=== PATIENT | female | born 2005 | race Caucasian/White ===

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

== ENCOUNTER 2025-02-01 10:49 | Outpatient (REF) | payer MEDICAID, SELFPAY ==
--- OUTSIDE RECORDS SUMMARY | 2025-02-01 11:40 | XMS_ITS | Encounter Summary ---
Author Organization [employer] Address [address] [place] [address] Care Team Providers Care Dye Weigher Name Role Phone Nhung Vanegas MD Primary Care Provider [phone] Mary Powers NP Primary Care Provider [phone] Encounter Details Date Type Department Care Team (Late st Contact Info) Description 04/11/2024 Orders Only [facility] [address] [place] [address] Nhung Vanegas MD [address] [place] [address] Social History Tobacco Use Types Packs/Day Years Used Date Smoking Tobacco: Never Smokeless Tobacco: Never Depression Answer Date Recorded Patient Health Questionnaire-9 Score 2 02/23/2023 Housing Stability Answer Date Recorded What is your housing situation today? I have larry ford 07/06/[address] you li ve. Do you have problems with any of the following? None of the above 07/06/2023 Food Insecurity Answer Date Recorded Within the past 12 months, y ou worried that your food would run out before you got money to buy more: Never True 07/06/2023 Within the past 12 months,th e food you bought just didn't last and you didn't have enough money to get more: Never True 01/2023 Transportation Answer Date Recorded In the past 12 months, has l ack of transportation kept you from medical appts, meetings, work or from getting things needed for daily living? No 07/06/2023 Utilities Answer Date Recorded In the past 12 months, has t he electric, gas, oil or water company threatened to shut off services in your home? No 07/06/2023 Depression Answer Date Recorded Patient Health Questionnaire-2 Score 1 02/23/2023 Comments Unknown Sex and Gender Information Value Date Recorded Sex Assigned at Female 06/30/2022 10:19 AM EDT Legal Sex Female 10:19 AM EDT Gender Identity Female 06/30/2022 10:19 AM EDT Sexual Orientation Straight 06/30/2022 10 :19 AM EDT documented as of this encounter Plan of Treatment Not on file documented as of this encounter Visit Diagnoses Not on filedocumented in this encounter Additional Health Concerns Assessment Noted Time PHQ-9 Depression Total Score: 2 02/24/20 23 4:52 PM EDT documented as of this encounter Care Teams Dye Weigher Relationship Specialty Start Date End Date Nhung Vanegas MD [address] [place] [address] PCP - General Pediatrics 07/10/14 11/02/24 Mary Powers NP [address] [place] [address] PCP - General Family Medicine 11/03/24 documented as of this encounter
[2025-02-01 13:20] LABS: MANUAL DIFF FLAG NO
[2025-02-01 13:28] LABS: Basophils Percent Auto 0.5 % (0-2); Eosinophils Percent Auto 0.6 % (0-4); Hematocrit 37.3 % (37.0-47.0); Hemoglobin 11.6 g/dl (12.0-16.0); Imm Gran Abs Auto 0.02 X10*3/uL (0.00-0.03); Imm Gran Pct Auto 0.3 % (0.0-0.4); Immature Retic Fraction 9.7 % (3.0-15.9); Lymphocytes Absolute Auto 1.8 X10*3/uL (1.2-4.9); Mean Corpuscular HGB Conc 31.1 g/dl (31.0-35.0); Mean Corpuscular Hemoglobin 23.6 pg (27.0-33.0); Mean Platelet Volume 10.9 fL (9.4-12.3); Monocytes Absolute Auto 0.3 X10*3/uL (0.1-1.2); Monocytes Percent Auto 4.9 % (2-11); Neutrophils Absolute Auto 4.4 x10*3/uL (2.0-8.3); Neutrophils Percent Auto 66.7 % (45-73); Platelet Count 300 X10*3/uL (160-400); Red Blood Count 4.91 X10*6/uL (4.20-5.50); Retic HGB Equivalent 30.5 pg (30.0-35.0); Reticulocyte Percent 0.9 % (0.5-1.8); Reticulocytes Absolute 0.046 X10*6/uL (0.026-0.095); White Blood Count 6.5 X10*3/uL (4.8-10.8)
[2025-02-01 13:46] LABS: Iron 58 mcg/dL (30-160); Percent Iron Saturation 16 % (15-50); Total Iron Binding Capacity 356 mcg/dL (228-428); Unsaturated Iron Binding 298 ug/dL
[2025-02-01 13:58] LABS: Free T4 (Free Thyroxine) 1.11 ng/dL (0.71-1.85); Thyroid Stimulating Hormone 0.75 uIU/mL (0.32-4.0)
[2025-02-01 13:59] LABS: TSH reflex Free T4 0.76 uIU/mL (0.32-4.0)
[2025-02-01 14:09] LABS: Folate 9.3 ng/mL (> or = 4.0); Vitamin B12 502 pg/mL (200-900)
[2025-02-02 06:33] LABS: DHEA Sulfate 333 mcg/dL (44-286); Follicle Stimulating Hormone 2.3 mIU/mL
[2025-02-07 13:59] LABS: Estrogen 247 pg/mL
[2025-02-19 16:18] LABS: Testosterone, Free 4.1 pg/mL (0.1-6.4); Testosterone, Total 25 ng/dL (2-45)
== END 2025-02-01 10:50 | disposition home or self-care (01) ==
LOC: HO.HHCL 10:49
PROVIDERS: Pediatrics; Visit Provider Nurse Practitioner
DX: N83.209 Unspecified ovarian cyst, unspecified side (principal); N94.6 Dysmenorrhea, unspecified; Z86.2 Personal history of diseases of the blood and blood-forming organs and certain disorders involving the immune mechanism
CPT/HCPCS: 36415; 82607; 82627; 82672; 82746; 83001; 83002; 83540; 84402; 84403; 84439; 84443; 85025; 85045

== ENCOUNTER 2025-06-01 22:23 | Emergency (ER) | payer MEDICAID, SELFPAY ==
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
--- NOTE | ~2025-06-01 | CT_ITS ---
CLINICAL HISTORY: Left Abd and Flank Pain; Pos LCVAT CT abdomen and pelvis with contrast Comparison: CT - CT ABDOMEN PELVIS WITH IV CONTRAST - 02/06/2024 12:17 AM EDT Findings: No consolidation or effusion. The gallbladder and solid organs are within normal limits. No renal stones. No bowel obstruction, pneumoperitoneum, or pneumatosis. There is ascites adjacent to the right adnexa. Pelvic contents are otherwise unremarkable. Normal appendix. The bones are intact. IMPRESSION: Localized pelvic ascites possibly related to recent cyst rupture. Clinical follow-up recommended. This document has been electronically signed by: Deep Mcknight MD on 06/02/2025 05:17:41
--- NOTE | ~2025-06-01 | US_ITS ---
EXAMINATION: US PELVIS CLINICAL INFORMATION: Abdominal pain. Pelvic free fluid on CT. COMPARISON: March 29, 2024. Correlated to CT abdomen and pelvis dated June 02, 2025. TECHNIQUE: Ultrasound of the pelvis is performed using only transabdominal transducer with grayscale and color Doppler. Transvaginal imaging is not performed, per patient's desire.. FINDINGS: Uterus: The uterus is anteverted and retroflexed measures 7 x 3 x 5 cm. Volume: 50 cc. The double wall endometrial thickness is 9 mm. The uterus is smooth in contour and has normal myometrial echogenicity. No visible fibroid. Adnexa: The ovaries are identified with flow on color Doppler interrogation.. No gross solid or cystic lesion in either ovary. Trace amount of free fluid in the cul-de-sac. Right ovary measures 2 x 3 x 2 cm. Volume: 9 cc. Left ovary measures 2 x 3 x 2 cm. Volume: 5 cc. US/US pelvic complete IMPRESSION: No ovarian torsion. No gross solid or cystic lesion. Trace amount of free fluid in the cul-de-sac. Electronically signed by: Micheal Lisa MD 06/02/2025 08:47 AM EDT
[2025-06-01 22:25] VITALS: BP 124/57; PULSE 88; RESP 20; TEMP 36.9; O2SAT 100; BMI 23.5
[2025-06-01 23:24] LABS: MANUAL DIFF FLAG NO
[2025-06-01 23:27] LABS: Appearance Urine Clear; Glucose Urine UA Negative (Negative); PH 6.0 (5.0-9.0); Specific Gravity - Urine <= 1.005 (1.005-1.025)
[2025-06-01 23:27] LABS: Hematocrit 35.6 % (37.0-47.0); Hemoglobin 11.1 g/dl (12.0-16.0); Imm Gran Abs Auto 0.02 X10*3/uL (0.00-0.03); Imm Gran Pct Auto 0.2 % (0.0-0.4); Lymphocytes Absolute Auto 3.0 X10*3/uL (1.2-4.9); Mean Corpuscular HGB Conc 31.2 g/dl (31.0-35.0); Mean Corpuscular Hemoglobin 25.6 pg (27.0-33.0); Mean Corpuscular Volume 82.0 fL (80.0-98.0); NRBC Abs Auto 0.000 X10*3/uL (0.0-0.012); NRBC Pct Auto 0.0 /100WBC (0.0-0.2); Platelet Count 286 X10*3/uL (160-400); Red Blood Count 4.34 X10*6/uL (4.20-5.50); White Blood Count 10.0 X10*3/uL (4.8-10.8)
[2025-06-01 23:39] LABS: Alanine Aminotransferase 15 U/L (0-31); Albumin Level 4.7 g/dL (3.5-5.0); Alkaline Phosphatase 52 U/L (39-117); Anion Gap 12 (12-20); Aspartate Amino Transferase 22 U/L (5-31); Blood Urea Nitrogen 9 mg/dL (9-16); Calcium 9.9 mg/dL (8.4-10.2); Carbon Dioxide 26 mmol/L (22-29); Chloride 108 mmol/L (96-108); Creatinine Clr Calc Pharmacy 141.9; Estimated Glomerular Filt Rate > 60; Potassium 5.2 mmol/L (3.3-5.1); Sodium 141 mmol/L (135-145); Total Protein 8.2 g/dL (6.5-8.0)
--- NOTE | 2025-06-02 01:38 | ED_ITS ---
HPI - Female Genitourinary General Chief complaint: Urogenital-Female Stated complaint: abd and back pain Time Seen by Provider: 06/02/25 01:37 Source: patient Mode of arrival: ambulatory Limitations: no limitations History of Present Illness ED Provider: Carl MENARD HPI Narrative: The patient is a 19-year-old female presenting to the ED reporting for the past 3 days she has been experiencing left-sided abdominal pain which radiates into her left flank with the associated burning with urination and some spotting on her toilet paper after urinating. The patient reports last menstrual period was the beginning of May, reports she is sexually active but uses barrier control. The patient reports some associated nausea and subjective chills but denies associated objective fever, vomiting, diarrhea, vaginal discharge, chest pain, shortness of breath, pleurisy, recent sick contacts, or recent trauma. Related Data Previous Rx's ?Medication ?Instructions ?Recorded cephalexin 500 mg capsule 500 mg PO BID #14 caps 09/18 doxycycline monohydrate 100 mg 100 mg PO BID #14 tabs 09/18/24 tablet acetaminophen 500 mg capsule 1,000 mg (2 x 500 mg) PO Q8H PRN 06/02/25 fever or pain #14 caps ibuprofen 400 mg tablet 400 mg PO Q6H PRN pain #14 t abs 06/02/25 Allergies Allergy/AdvReac Type Severity Reaction Status Date / Time No Known Allergies Allergy Verified 06/01/25 22:27 Review of Systems 2 Review of Systems: Yes all other systems are reviewed and are negative PMFSH Past Medical History Medical History No known health problems Social History Social History Alcohol intake: never Smoked in Last 30 Days: No Use of substances other than those prescribed or required for medical reasons: No Advance Directives: No Physical Exam 2 Vital Signs: Vital Signs: Last Vital Signs Temp 98.4 F 06/02/25 03:11 Pulse 70 06/02/25 06:16 Resp 18 06/02/25 06:16 BP 106/68 06/02/25 07:09 Pulse Ox 100 06/02/25 06:16 O2 Del Method Room Air 06/02/25 06:16 BMI result Body Mass Index 23.5 CONSTITUTIONAL: The patient appears non-toxic, well nourished and in no acute distress. Vital signs as documented. HEAD: Atraumatic, normocephalic. EYES: EOMs grossly intact, pupils equal, conjunctiva clear, no exudate. ENT: Nares patent, no discharge. Airway patent, no audible stridor, visible mucosa is pink and moist without noted lesions. NECK: Trachea is midline, no obvious masses or gross abnormalities. CHEST: Symmetric movement, normal appearance. LUNGS: LS present and CTAB, no w/r/r. Non-labored work of breathing. CARDIAC: Regular Rhythm, S1/S2 appreciated, no murmurs, rubs or gallops. ABDOMEN: Abdomen soft x4 quadrants, positive tenderness to palpation of the left upper quadrant, negative rebound, no palpable masses or organomegaly. Positive CVAT on the left, negative on the right. : Deferred. EXTREMITIES: Normal tone, moves all extremities spontaneously without reported pain. No obvious acute injury or deformity noted. NEURO: Alert and oriented x3, CN II-XII appear grossly intact. Cerebellar Functioning grossly intact. No obvious sensory or motor deficits. Speech clear and appropriate. PSYCH: normal affect, appropriate eye contact, fluid speech, with appropriate response to questioning. No reported suicidality or homicidality. SKIN: Warm, dry, color appropriate, normal turgor. No rashes noted. Course Reevaluation(s) Reevaluation #1: Fredrickius: The patient was signed out to me pending the results of an ultrasound of the pelvis. The patient is a 19-year-old female who had originally presented to the emergency room complaining of left lower quadrant abdominal pain and left flank pain. There was also a question of possible burning with urination. The patient also reported seeing blood on her toilet paper. Her urinalysis here shows no signs of blood or infection. A CT scan with IV contrast has been done that showed no acute findings except for a small amount of free fluid near the right adnexal area. I reviewed the images and saw no hydronephrosis. On the basis of the CT finding a pelvic ultrasound was ordered to look for a ruptured ovarian cyst. The pelvic ultrasound showed no significant findings and described only a trace amount of free fluid in the cul de sac. The patient was given IV ketorolac and acetaminophen for discomfort. She was feeling much better. Her labs are unremarkable. I think she may be discharged. She says that she has a new patient appointment for primary care with the [facility] in July. She is encouraged to keep this appointment or return to the ER if worse before then. Time: 09:06 Medications Administered Discontinued Medications Generic Name Dose Route Start Last Admin Trade Name Keshawn PRN Reason Stop Dose Admin Sodium Chloride 1,000 mls @ 999 mls/hr 06/02/25 02:00 06/02/25 02:59 Ns IV 06/02/25 03:00 Infused .Q1H1M AUGIE Infusion Acetaminophen 1,000 mg in 100 mls @ 400 mls/hr 06/02/25 07:15 06/02/25 08:00 Ofirmev IV 06/02/25 07:29 Infused ONCE ONE Infusion Iohexol 85 ml 06/02/25 04:10 06/02/25 04:12 Iohexol 350 Mg/Ml 100 Ml Infus..Btl IV 06/02/25 04:11 85 ml ONCE ONE Administration Ketorolac Tromethamine 15 mg 06/02/25 07:15 06/02/25 07:27 Ketorolac Tromethamine 15 Mg/Ml Vial IVPUSH 06/02/25 07:16 15 mg ONCE ONE Administration Medical Decision Making Medical Decision Making MDM Narrative: 2:03 AM 06/02/2025 (Stephenie MENARD): The patient is a 19-year-old female presenting to the ED reporting for the past 3 days she has been experiencing left-sided abdominal pain which radiates into her left flank with the associated burning with urination and some spotting on her toilet paper after urinating. The patient reports last menstrual period was the beginning of May, reports she is sexually active but uses barrier control. The patient reports some associated nausea and subjective chills but denies associated objective fever, vomiting, diarrhea, vaginal discharge, chest pain, shortness of breath, pleurisy, recent sick contacts, or recent trauma. On exam the patient is tender more in the left upper quadrant than left lower quadrant, with positive CVAT on the left. Negative rebound. The patient's laboratory evaluation shows no leukocytosis, significant anemia, significant electrolyte abnormality, or СВЕТЛАНА. The patient's LFTs are unremarkable. The patient's urinalysis shows no evidence of infection, no blood. We will add on a test, provide IV fluid hydration, and obtain CT abdomen and pelvis to evaluate for ureterolithiasis or other acute pathology. If patient's test is positive we will forego CT and obtain pelvic ultrasound. If there is no explanation of the patient's symptoms on imaging, we will perform pelvic exam to further evaluate symptoms. 5:28 AM 06/02/2025 (Stephenie MENARD): The patient's CT shows a significant amount of free fluid in the right lincoln-pelvis, although this is inconsistent with the left sided pain patient is describing, we will obtain pelvic ultrasound to further characterize free pelvic fluid and ensure no torsion. Admission/Observation Consideration of admission/observation: Escalation of care including admission/observation considered Lab Data MDM Lab Attestation statement: I reviewed the patient's lab results. 06/01/25 23:08 06/01/25 23:08 Labs: Lab Results 06/01/25 06/01/25 06/02/25 Range/Units 23:06 23:08 07:33 WBC 10.0 (4.8-10.8) X10*3/uL RBC 4.34 (4.20-5.50) X10*6/uL Hgb 11.1 L (12.0-16.0) g/dl Hct 35.6 L (37.0-47.0) % MCV 82.0 (80.0-98.0) fL MCH 25.6 L (27.0-33.0) pg MCHC 31.2 (31.0-35.0) g/dl RDW 14.0 (11.0-16.0) % Plt Count 286 (160-400) X10*3/uL MPV 10.4 (9.4-12.3) fL Immature Gran % (Auto) 0.2 (0.0-0.4) % Neut % (Auto) 64.4 (45-73) % Lymph % (Auto) 30.0 (20-40) % [place] % (Auto) 3.9 (2-11) % Eos % (Auto) 1.1 (0-4) % Baso % (Auto) 0.4 (0-2) % Lymph # (Auto) 3.0 (1.2-4.9) X10*3/uL [place] # (Auto) 0.4 (0.1-1.2) X10*3/uL Eos # (Auto) 0.1 (0.0-0.4) X10*3/uL Baso # (Auto) 0.0 (0.0-0.2) X10*3/uL Abs Immat Gran (auto) 0.02 (0.00-0.03) X10*3/uL Absolute Neuts (auto) 6.5 (2.0-8.3) x10*3/uL Absolute Nucleated RBC 0.000 (0.0-0.012) X10*3/uL Nucleated RBC % (auto) 0.0 (0.0-0.2) /100WBC Sodium 141 (135-145) mmol/L Potassium 5.2 H (3.3-5.1) mmol/L Chloride 108 (96-108) mmol/L Carbon Dioxide 26 (22-29) mmol/L Anion Gap 12 (12-20) BUN 9 (9-16) mg/dL Creatinine 0.62 (0.5-1.4) mg/dL Estim Creat Clear Calc 141.9 Estimated GFR > 60 Random Glucose 92 (60-115) mg/dL Calcium 9.9 (8.4-10.2) mg/dL Total Bilirubin 0.2 (0.0-1.0) mg/dL AST 22 (5-31) U/L ALT 15 (0-31) U/L Alkaline Phosphatase 52 (39-117) U/L Total Protein 8.2 H (6.5-8.0) g/dL Albumin 4.7 (3.5-5.0) g/dL Urine Color Yellow Urine Appearance Clear Urine pH 6.0 (5.0-9.0) Ur Specific [place] <= 1.005 (1.005-1.025) Urine Protein Negative (Neg-Trace) mg/dL Urine Glucose (UA) Negative (Negative) mg/dL Urine Ketones Negative (Negative) mg/dL Urine Blood Negative (Negative) Urine Nitrite Negative (Negative) Ur Leukocyte Esterase Negative (Negative) Urine Test NEGATIVE NEGATIVE (NEGATIVE) Radiology Impression Discussion of test interpretation with radiology: I have reviewed the radiologist's reading. Radiologist Impression: CT abdomen and pelvis with contrast Comparison: CT - CT ABDOMEN PELVIS WITH IV CONTRAST - 02/06/2024 12:17 AM EDT Findings: No consolidation or effusion. The gallbladder and solid organs are within normal limits. No renal stones. No bowel obstruction, pneumoperitoneum, or pneumatosis. There is ascites adjacent to the right adnexa. Pelvic contents are otherwise unremarkable. Normal appendix. The bones are intact. IMPRESSION: Localized pelvic ascites possibly related to recent cyst rupture. Clinical follow-up recommended. This document has been electronically signed by: Deep Mcknight MD on 06/02/2025 05:17:41 Discharge Plan Discharge Clinical Impression: Left sided abdominal pain Patient Disposition: Home, Self-Care Additional Instructions: Your testing in the emergency room today does not show any dangerous process. It is possible that you might have had a small ovarian cyst rupture. However this is not certain. Fortunately there are no other findings of any concern. I have sent a prescription for acetaminophen and ibuprofen to your pharmacy. You may use these as needed for pain. Please plan on keeping your appointment with your primary care doctor next month. Return to the emergency room if worse before then. Prescriptions: New ibuprofen 400 mg tablet 400 mg PO Q6H PRN (Reason: pain) Qty: 14 0RF acetaminophen 500 mg capsule 1,000 mg PO Q8H PRN (Reason: fever or pain) Qty: 14 0RF No Action doxycycline monohydrate 100 mg tablet 100 mg PO BID Qty: 14 0RF cephalexin 500 mg capsule 500 mg PO BID Qty: 14 0RF Referrals: [facility] [Provider Group] Stand Alone Forms: Work/School Release Print Language: Slovenian
--- OUTSIDE RECORDS SUMMARY | 2025-06-02 01:43 | XMS_ITS | Encounter Summary ---
Author Organization [facility] Address [address] [place] [address] Care Team Providers Care It Operations Analyst Name Role Phone Nhung Vanegas MD Primary Care Provider [phone] Mary Powers NP Primary Care Provider [phone] Encounter Details Date Type Department Care Team (Late st Contact Info) Description 04/11/2024 Orders Only [facility] [address] [place] [address] Nhung Vanegas MD [address] [place] [address] Social History Tobacco Use Types Packs/Day Years [...] as of this encounter Plan of Treatment Upcoming Encounters Date Type Department Care Team (Late st Contact Info) Description 07/17/2025 11:00 AM EST Office Visit [facility] [address] [place] [address] Mary Powers NP [address] [place] [address] documented as of this encounter Visit Diagnoses Not on filedocumented in this encounter Additional Health Concerns Assessment Noted Time PHQ-9 Depression Total Score: 2 02/24/20 23 4:52 PM EDT documented as of this encounter Care Teams It Operations Analyst Relationship Specialty Start Date End Date Nhung Vanegas MD [address] [place] [id number] PCP - General Pediatrics 07/10/14 11/02/24 Mary Powers NP [address] [place] [id number] PCP - General Family Medicine 11/03/24 documented as of this encounter
--- OUTSIDE RECORDS SUMMARY | 2025-06-02 01:43 | XMS_ITS | Encounter Summary ---
Author Organization [facility] Address [address] [place] [address] Care Team Providers Care Aged Or Disabled Carer Name Role Phone Nhung Vanegas MD Primary Care Provider [phone] Mary Powers NP Primary Care Provider [phone] Encounter Details Date Type Department Care Team ([facility] st Contact Info) Description 03/01/2024 Orders Only [facility] [address] [place] [address] Nhung Vanegas MD [address] [place] [address] Ovarian cyst rupture (Primary Dx) Social History Tobacco Use Types Packs/Day Years [...] Description 07/17/2025 11:00 AM EST Office Visit [facility] [address] [place], [place] [phone] Mary Powers NP [address] [place], [place] [phone] documented as of this encounter Procedures Procedure Name Priority Date/Time Associated Diagnosis Comments US PELVIS COMPLETE Routine 03/29/2024 4: 51 PM EDT documented in this encounter Results * Us Pelvis complete (03/29/2024 4:51 PM EDT) Anatomical Region Laterality Modality Pelvis Ultrasound 03/29/2024 4:51 PM EDT Narrative 04/11/2024 2:48 PM EDT [address] [address] Ultrasound Report Signed Patient: Monica Vazquez MR#: [id number] : 2005 Acct:[id number] Age/Sex: 18 / F ADM Date: 03/29/24 Loc: HO.US Attending Dr: Nhung Vanegas MD Ordering Physician: Nhung Vaneags MD Date of Service: 03/29/24 Procedure(s): US pelvic complete Accession Number(s): [id number] cc: Nhung Vanegas MD EXAMINATION: US PELVIS CLINICAL INFORMATION: Ovarian cyst rupture, last menstrual period 03/18/2024, patient declined transvaginal ultrasound. COMPARISON: CT abdomen and pelvis of February 05, 2024. TECHNIQUE: Transabdominal ultrasound images of the pelvis were obtained. Patient declined transvaginal ultrasound imaging. FINDINGS: Uterus is anteverted and measures 7.3 x 3.3 x 4.0 cm. Limited visualization of endometrium due to bowel gas, but imaged segment of endometrium demonstrates thickness of approximately 0.4-0.6 cm. No significant free fluid. Right ovary measures 3.2 x 2.1 x 2.3 cm, volume 8.1 mL. Left ovary measures 2.8 x 2.4 x 1.6 cm, volume 5.6 mL. Right ovarian 1.2 cm cyst is likely physiologic. There is no specific indication for additional imaging at this time. Left ovary grossly unremarkable. Visualization of bilateral ovaries is limited due to bowel gas. Transvaginal ultrasound could be considered for better visualization. US/US pelvic complete IMPRESSION: 1. Right ovarian 1.2 cm cyst is likely physiologic. There is no specific indication for additional imaging at this time. 2. Left ovary grossly unremarkable. Visualization of bilateral ovaries is limited due to bowel gas. Transvaginal ultrasound could be considered for better visualization. 3. Limited visualization of endometrium due to bowel gas, but imaged segment of endometrium demonstrates thickness of approximately 0.4-0.6 cm. Dictated By: Angelina Sahu MD Signed By: <Electronically signed by Angelina Sahu MD in OV> 04/11/24 1443 DD/ 1651 TD/TT: Metal Mover: Procedure Note Donotuseinterpreter, Image - 04/11/[address] [address] Ultrasound Report Signed Patient: Monica VazquezMR#: [id number] : 2005cct:[id number] Age/Sex: 18 / FADM Date: 03/29/24 Loc: HO.US Attending Dr: Nhung Vanegas MD Ordering Physician: Nhung Vanegas MD Date of Service: 03/29/24 Procedure(s): US pelvic complete Accession Number(s): [id number] cc: Nhung Vanegas MD EXAMINATION: US PELVIS CLINICAL INFORMATION: Ovarian cyst rupture, last menstrual period 03/18/2024, patient declined transvaginal ultrasound. COMPARISON: CT abdomen and pelvis of February 05, 2024. TECHNIQUE: Transabdominal ultrasound images of the pelvis were obtained. Patient declined transvaginal ultrasound imaging. FINDINGS: Uterus is anteverted and measures 7.3 x 3.3 x 4.0 cm. Limited visualization of endometrium due to bowel gas, but imaged segment of endometrium demonstrates thickness of approximately 0.4-0.6 cm. No significant free fluid. Right ovary measures 3.2 x 2.1 x 2.3 cm, volume 8.1 mL. Left ovary measures 2.8 x 2.4 x 1.6 cm, volume 5.6 mL. Right ovarian 1.2 cm cyst is likely physiologic. There is no specific indication for additional imaging at this time. Left ovary grossly unremarkable. Visualization of bilateral ovaries is limited due to bowel gas. Transvaginal ultrasound could be considered for better visualization. US/US pelvic complete IMPRESSION: 1. Right ovarian 1.2 cm cyst is likely physiologic. There is no specific indication for additional imaging at this time. 2. Left ovary grossly unremarkable. Visualization of bilateral ovaries is limited due to bowel gas. Transvaginal ultrasound could be considered for better visualization. 3. Limited visualization of endometrium due to bowel gas, but imaged segment of endometrium demonstrates thickness of approximately 0.4-0.6 cm. Dictated By: Angelina Sahu MD Signed By: <Electronically signed by Angelina Sahu MD in OV> 04/11/24 1443 DD/ 1651 TD/TT: Metal Mover: us Nhung Vanegas MD IMG US PROCEDURES Final Resul t documented in this encounter Visit Diagnoses Diagnosis Ovarian cyst rupture- Primary Other and unspecified ovarian cyst documented in this encounter Additional Health Concerns Assessment Noted Time PHQ-9 Depression Total Score: 2 02/24/20 23 4:52 PM EDT documented as of this encounter Care Teams Aged Or Disabled Carer Relationship Specialty Start Date End Date Nhung Vanegas MD [address] [place] [id number] PCP - General Pediatrics 07/10/14 11/02/24 Mary Powers NP [address] [place] [phone] PCP - General Family Medicine 11/03/24 documented as of this encounter
--- OUTSIDE RECORDS SUMMARY | 2025-06-02 01:44 | XMS_ITS | Clinical Summary ---
Author Organization [employer] Address [address] [facility] [address] [place] [address] Care Team Providers Care Care Professionals Name Role Phone Mary Powers NP Primary Care Provider [phone] Allergies Active Allergy Reactions Criticality Noted Date Comments Oatmeal Hives 02/01/2025 Medications ibuprofen 600 MG tabletIndicatio ns:Dysmenorrhea Take 1 tablet TID starting 3 days before and during menses.may discontinue use when cycle ends 60 tablet 2 5 Active cholecalciferol (Vitamin D-3) 20 MCG (800 UNIT) tablet Take 1 tablet (20 mcg) by mouth Once per day. 90 tablet 1 5 11/13/19 26 Active Active Problems No known active problems Encounters Date Type Department Care Team Description 03/20/2025 9:15 AM EDT Office Visit [facility] [address] [place] [address] Mary Powers NP Elevated DHEA (Primary Dx); Microcytic hypochromic anemia; Menstrual irregularity 03/20/2025 Travel 03/16/2025 Telephone [facility] [address] [place], [place] [phone] Mary Powers NP Chart Prep from Last 3 Months Immunizations Immunization Administration Dates Next Due DTaP 05/31/2010,03/16/2007 DTaP / Hep B / IPV 05/28/2006,04/09/2006, 006 HPV 9-Valent 06/26/2017,11/14/2016 Hep A, ped/adol, 2 dose 08/16/2013,11/02/2007 Hep B, Adolescent or Pediatric 2005 Hib (HbOC) 03/16/2007 Hib (PRP-T) 05/28/2006,04/09/2006,01/01/2006 IPV 05/31/2010 Influenza, IIV3, injectable 05/31/2010 MMR 05/31/2010 MMRV 03/16/2007 Meningococcal MCV4P ACYW-135 11/14/2016 Meningococcal Polysaccharide A,C,Y,W-135 TT Conjugate 04/02/2023 Pneumococcal Conjugate PCV 13 05/31/2010 Pneumococcal Conjugate PCV 7 03/16/2007, 05/28/2006,04/09/2006,01/01 Tdap 11/14/2016 Varicella 05/31/2010 Family History Medical History Relation Name Comments Kidney disease Father Heart disease Maternal Grandfather No Known Problems Mother Relation Name Status Comments Father Maternal Grandfather Mother Social History Tobacco Use Types Packs/Day Years Used Date Smoking Tobacco: Never Smokeless Tobacco: Never Tobacco Cessation:Counseling Given: Not Answered Alcohol Use Standard Drinks/Week Comments Never 0 (1 standard drink = 0.6 oz pur e alcohol) Depression Answer Date Recorded Patient Health Questionnaire-9 Score 3 02/01/2025 Patient Health Questionnaire-9 Score 3 02/01/2025 Last PHQ-9: Questionnaire Data Not on file 0 02/01/2025 Housing Stability Answer Date Recorded What is your housing situation today? I have larry ford 02/01/[address] you li ve. Do you have problems with any of the following? None of the above 02/01/2025 Food Insecurity Answer Date Recorded Within the past 12 months, y ou worried that your food would run out before you got money to buy more: Never True 02/01/2025 Within the past 12 months,th e food you bought just didn't last and you didn't have enough money to get more: Never True 11/2024 Transportation Answer Date Recorded In the past 12 months, has l ack of transportation kept you from medical appts, meetings, work or from getting things needed for daily living? No 02/01/2025 Utilities Answer Date Recorded In the past 12 months, has t he electric, gas, oil or water company threatened to shut off services in your home? No 02/01/2025 Depression Answer Date Recorded Patient Health Questionnaire-2 Score 1 02/01/2025 Internet Access Answer Date Recorded Internet Access Q1 Yes 02/01/2025 Internet Access Q2 Not on file 02/01/2025 Comments Unknown Intention Date Recorded Ambivalent about becoming (find ing) 02/01/2025 Sex and Gender Information Value Date Recorded Sex Assigned at Female 06/30/2022 10:19 AM EDT Legal Sex Female 10:19 AM EDT Gender Identity Female 06/30/2022 10:19 AM EDT Sexual Orientation Straight 06/30/2022 10 :19 AM EDT Last Filed Vital Signs Vital Sign Reading Time Taken Comments Blood Pressure 120/82 03/20/2025 9:16 AM EDT Pulse 76 03/20/2025 9:16 AM EDT Temperature 37.3 C (99.1 F) 03/20/2025 9:16 AM EDT Respiratory Rate 19 03/20/2025 9:16 AM EDT Oxygen Saturation 99% 03/20/2025 9:16 AM EDT Inhaled Oxygen Concentration - - Weight 68.3 kg (150 lb 9.6 oz) 03/20/2025 9:16 A M EDT Height 162.6 cm (5' 4 ) 03/20/2025 9:16 AM EDT Body Mass Index 25.85 03/20/2025 9:16 AM EDT Plan of Treatment Upcoming Encounters Date Type Department Care Team (Late st Contact Info) Description 07/17/2025 11:00 AM EST Office Visit [facility] [address] [place] [address] Mary Powers NP [address] [place] [address] Health Maintenance Due Date Last Done Comments Chlamydia and Gonorrhea Screening 2005 HIV Screening 2005 Meningococcal B Vaccine (1 of 2 - Standard) 2021 Hepatitis C Screening 11/01/2023 COVID-19 Vaccine ( season) 2025 Influenza Vaccine (#1) 2025 05/31/2010 Alcohol/Substance Use Screening 02/01/2026 02/01/2025 Depression Screening 02/01/2026 02/01/2025, 02/02/20 25 Disability Screening 02/01/2026 02/01/2025 Family Planning (PISQ) 02/01/2026 02/01/2025 SDOH Screening 02/01/2026 02/01/2025 Tobacco Screening 03/20/2026 03/20/2025 DTaP/Tdap/Td Vaccines (7 - Td or Tdap) 11/14/2026 11/14/2016, 05/31/2010, 03/16/2007, Additional history exists Zoster Vaccines (1 of 2) 11/01/2055 RSV Patients and Patients Aged 60 years or older (1 - 1-dose 75+ series) 2080 Hepatitis B Vaccines Completed 05/28/2006, 04/09/2006, 01/01/2006, Additional history exists HIB Vaccines Completed 03/16/2007, 05/02, 04/09/2006, Additional history exists IPV Vaccines Completed 05/31/2010, 05/02, 04/09/2006, Additional history exists MMR Vaccines Completed 05/31/2010, 03/16/2007 Pneumococcal Vaccine: Pediatrics (0 to 5 Years) and At-Risk Patients (6 to 49) Years Completed 05/31/2010, 03/16/2007, 05/28/2006, Additional history exists Varicella Vaccines Completed 05/31/2010, 03/16/2007 Hepatitis A Vaccines Completed 08/16/2013, 11/02/19 08 HPV Vaccines Completed 06/26/2017, 11/14/2016 Fluoride Varnish Discontinued 12/14/2020, , 11/30/2018, Additional history exists Meningococcal Vaccine Completed 04/02/2023, 017 RSV under 20 months Aged Out No longe r eligible based on patient's age to complete this topic Rotavirus Vaccines Aged Out No longer eligible based on patient's age to complete this topic Procedures Procedure Name Priority Date/Time Associated Diagnosis Comments COMPREHENSIVE METABOLIC PANEL Routine 06/01/2025 11:08 PM EDT CBC WITH AUTO DIFFERENTIAL Routine 06/01/2025 11:08 PM EDT URINALYSIS WITH REFLEX MICROSCOPIC Routine 06/01/2025 11:06 PM EDT TOPICAL APPLICATION OF FLUORIDE VARNISH Routine 12/14/2020 12:00 AM EDT from Last 3 Months or Most Recently Relevant to Health Maintenance Results * (ABNORMAL) CBC auto differential (06/01/2025 11:08 PM EDT) White Blood Count 10.0 4.8 - 10.8 X10*3/uL [facility] Red Blood Count 4.34 4.20 - 5.50 X10*6/uL [facility] Hemoglobin 11.1(L) 12.0 - 16.0 g/dl [facility] Hematocrit 35.6(L) 37.0 - 47.0 % [facility] Mean Corpuscular Volume 82.0 80.0 - 98.0 fL [facility] Mean Corpuscular Hemoglobin 25.6(L) 27.0 - 33.0 pg [facility] Mean Corpuscular HGB Conc 31.2 31.0 - 35.0 g/dl [facility] Red Cell Distribution Width 14.0 11.0 - 16.0 % [facility] Platelet Count 286 160 - 400 X10*3/uL [facility] Mean Platelet Volume 10.4 9.4 - 12.3 fL [facility] Neutrophils Percent Auto 64.4 45 - 73 % [facility] Imm Gran Pct Auto 0.2 0.0 - 0.4 % [facility] Lymphocytes Percent Auto 30.0 20 - 40 % [facility] Monocytes Percent Auto 3.9 2 - 11 % [facility] Eosinophils Percent Auto 1.1 0 - 4 % [facility] Basophils Percent Auto 0.4 0 - 2 % [facility] NRBC Pct Auto 0.0 0.0 - 0.2 /100WBC [facility] Neutrophils Absolute Auto 6.5 2.0 - 8.3 x10*3/uL [facility] Imm Gran Abs Auto 0.02 0.00 - 0.03 X10*3/uL [facility] Lymphocytes Absolute Auto 3.0 1.2 - 4.9 X10*3/uL [facility] Monocytes Absolute Auto 0.4 0.1 - 1.2 X10*3/uL [facility] Eosinophils Absolute Auto 0.1 0.0 - 0.4 X10*3/uL [facility] Basophils Absolute Auto 0.0 0.0 - 0.2 X10*3/uL [facility] NRBC Abs Auto 0.000 0.0 - 0.012 X10*3/uL [facility] 06/01/2025 11:0 8 PM EDT 06/01/2025 11:22 PM EDT us Generic External Data Provider LAB BLOOD ORDERAB LES Final Result [facility] [address] [place] [phone] [phone] * (ABNORMAL) Comprehensive Metabolic Panel (06/01/2025 11:08 PM EDT) Sodium 141 135 - 145 mmol/L [facility] Potassium 5.2(H) 3.3 - 5.1 mmol/L [facility] Chloride 108 96 - 108 mmol/L [facility] Carbon Dioxide 26 22 - 29 mmol/L [facility] Anion Gap 12 12 - 20 [facility] Urea Nitrogen (BUN) 9 9 - 16 mg/dL [facility] Creatinine, Serum 0.62 0.5 - 1.4 mg/dL [facility] Creatinine Clr Calc Pharmacy 141.9 [facility] Comment:Provided height and weight: 170.18 cm,68.039 kg.eGFR (calculated from the MDRD study equation) and eCrCl(calculated from the Cockcroft-Gault equation) are based ondifferent parameters and may not yield comparable results.If eCrCl result is absurd, please check patient'sheight/weight. Estimated Glomerular Filt Rate >60 [facility] Comment:Chronic Kidney Disea se: Estimated GFR < 60 mL/min/[id number] Kidney Disease: Estimated GFR < 15 mL/min/1.73m2 Glucose 92 60 - 115 mg/dL [facility] Calcium 9.9 8.4 - 10.2 mg/dL [facility] Bilirubin, Total 0.2 0.0 - 1.0 mg/dL [facility] Aspartate Amino Transferase 22 5 - 31 U/L [facility] Alanine Aminotransferase 15 0 - 31 U/L [facility] Total Protein 8.2(H) 6.5 - 8.0 g/dL [facility] Albumin Level 4.7 3.5 - 5.0 g/dL [facility] Alkaline Phosphatase 52 39 - 117 U/L [facility] 06/01/2025 11:0 8 PM EDT 06/01/2025 11:22 PM EDT us Generic External Data Provider LAB BLOOD ORDERAB LES Final Result Performing Organization Address City/State/[facility] Co de Phone Number [facility] [address] [place] [phone] * Urinalysis w/reflex microscopic (06/01/2025 11:06 PM EDT) Color Urine Yellow [facility] Appearance Urine Clear [facility] PH 6.0 5.0 - 9.0 [facility] Glucose Urine UA Negative Negative mg/dL [facility] Urine Blood Negative Negative [facility] Specific [place] - Urine <=1.005 1.005 - 1.025 [facility] Urine Protein Negative Neg-Trace mg/dL [facility] Urine Ketones Negative Negative mg/dL [facility] Nitrite Urine Negative Negative [facility] Leukocyte Esterase Urine Negative Negative [facility] 06/01/2025 11:0 6 PM EDT 06/01/2025 11:22 PM EDT Narrative [facility] - 06/01/2025 11:28 PM EDT [id number], [employer] us Generic External Data Provider LAB URINE ORDERAB LES Final Result [facility] [address] [place] [address] [phone] from Last 3 Months Insurance [employer] C3 Care Teams Care Professionals Relationship Specialty Start Date End Date Mary Powers NP [address] [place] [address] PCP - General Family Medicine 11/03/24
--- OUTSIDE RECORDS SUMMARY | 2025-06-02 01:44 | XMS_ITS | Patient Health Record ---
Author Organization [facility] Address [address] [place] [address] Care Team Providers Care Roving Weight Gauger Name Role Phone ADRIANO PRADHAN Unavailable [phone] RANJANA HUMPHREYS Unavailable [phone] Reason For Referral No Information Medications Medication SIG (Take, Route, Fr equency, Duration) Notes Start Date End Date Status Ondansetron 4 MG 1 tablet on the tongue and allow to dissolve Orally Once a day; Duration: 30 days As needed for nausea 11/30/2024 Active Problems Problem Type SNOMED Code ICD Code Onset Dates Problem Status W/U Status Risk Notes Problem Overweight (831260685) Overweight (E66.3) Active confirmed Problem Essential hypertension (09974727) Essential (primary) hypertension (I10) Active confirmed Vital Signs Heart Rate 70 /min 11/22/2024 Blood pressure diastolic 80 mm Hg 11/22/2024 BMI Percentile 91.21 % 11/22/2024 Height 65 in 11/22/2024 Blood pressure systolic 120 mm Hg 11/22/2024 Weight 170 lbs 11/22/2024 BMI 28.29 kg/m2 11/22/2024 Encounters Encounter Location Date Provider Diagnosis [facility] [address] [address] 11/22/2024 RANJANA HUMPHREYS Essential (primary) hypertension I10 ; Overweight E66.3 ; BMI 28.0-28.9,adult Z68.28 and Nutritional counseling Z71.3 [facility] [address] [address] 11/30/2024 RANJANA HUMPHREYS Assessments Encounter Date Diagnosis (ICD Code) Assessment Notes Treatment Notes Treatment Clinical Notes Section Notes 11/22/2024 Overweight (ICD-10 - E66.3) Patient is [...] after his appetite, likely next week. 11/22/2024 Essential (primary) hypertension (ICD-10 - I10) [...]
--- OUTSIDE RECORDS SUMMARY | 2025-06-02 01:44 | XMS_ITS | Encounter Summary ---
Author Organization [employer] Address [address] [facility] [address] [place] [address] Care Team Providers Care Edger Hand Name Role Phone Mary Powers NP Primary Care Provider [phone] Reason for Visit * Reason Onset Date Comments Results 02/03/2025 Encounter Details Date Type Department Care Team ([facility] st Contact Info) Description 02/03/2025 Telephone [facility] [address] [place] [address] Mary Powers NP [address] [place] [address] Results Social History Tobacco Use Types Packs/Day Years Used Date Smoking Tobacco: Never Smokeless Tobacco: Never Alcohol Use Standard Drinks/Week Comments Never 0 [...] Q2 Not on file 02/01/2025 Comments Unknown Sex and Gender Information Value Date Recorded Sex Assigned at Female 06/30/2022 10:19 AM EDT Legal Sex Female 10:19 AM EDT Gender Identity Female 06/30/2022 10:19 AM EDT Sexual Orientation Straight 06/30/2022 10 :19 AM EDT documented as of this encounter Miscellaneous Notes * Telephone Encounter - Mary Powers NP - 02/03/2025 12:38 PM EDT Message sent to nurse corby * Telephone Encounter - Roberta Mcdaniels - 02/03/2025 9:56 AM EDT Tc from pt requesting a callback in regards her results from 02/01 documented in this encounter Plan of Treatment Upcoming Encounters Date Type Department Care Team (Late st Contact Info) Description 07/17/2025 11:00 AM EST Office Visit [facility] [address] [place] [address] Mary Powers NP [address] [place] [address] documented as of this encounter Visit Diagnoses Not on filedocumented in this encounter Additional Health Concerns Assessment Noted Time PHQ-9 Depression Total Score: 3 02/02/20 25 10:46 AM EDT documented as of this encounter Care Teams Edger Hand Relationship Specialty Start Date End Date Mary Powers NP [address] [place] [address] PCP - General Family Medicine 11/03/24 documented as of this encounter
--- OUTSIDE RECORDS SUMMARY | 2025-06-02 01:44 | XMS_ITS | Clinical Summary ---
Author Organization [facility] Address [address] [place] [address] Care Team Providers Care Fleet Administrative Assistant Name Role Phone Unavailable Primary Care Provider Unavailabl e Social History Tobacco Use Types Packs/Day Years Used Date Smoking Tobacco: Never Assessed Comments Unknown Sex and Gender Information Value Date Recorded Sex Assigned at Not on file Legal Sex Female 8:18 PM EST Gender Identity Not on file Sexual Orientation Not on file Plan of Treatment Health Maintenance Due Date Last Done Comments Gonorrhea/Chlamydia Screening 2005 Varicella Vaccines (1 of 2 - 13+ 2-dose series) 2018 HPV Vaccines (1 - 3-dose series) 2020 Meningococcal B Vaccine (1 o f 2 - Standard) 2021 Annual Well Child Visit (3-2 1 years old) 09/24/2023 HIV Screening 09/24/2023 Hepatitis C Screening 09/24/2023 Social Influencers of Health Screening 09/24/2023 Depression Screening 08/31/2024 DTaP,Tdap,and Td Vaccines (1 - Tdap) 2024 Hepatitis B Vaccines (1 of 3 - 19+ 3-dose series) 2024 COVID-19 Vaccine (1 - 2023-2 5 season) 2025 Influenza Vaccine (#1) 2025 RSV Immunization Adult Patie nts (1 - 1-dose 75+ series) 2080 HIB Vaccines Aged Out No longer eligi ble based on patient's age to complete this topic Hepatitis A Vaccines Aged Out No long er eligible based on patient's age to complete this topic IPV Vaccines Aged Out No longer eligi ble based on patient's age to complete this topic MMR Vaccines Aged Out No longer eligi ble based on patient's age to complete this topic Meningococcal ACWY Vaccine Aged Out N o longer eligible based on patient's age to complete this topic Pneumococcal Vaccine: Pediat rics (0 to 5 Years) and At-Risk Patients (6 to 49 Years) Aged Out No longer eligible b ased on patient's age to complete this topic RSV Immunization Patients Un huong 20 months Aged Out No longer eligible b ased on patient's age to complete this topic
--- OUTSIDE RECORDS SUMMARY | 2025-06-02 01:44 | XMS_ITS | Clinical Summary ---
Author Organization [facility] Address [address] [place] [address] Phone Care Team Providers Care Grinder Brake Lining Name Role Phone Syeda Myles MD Primary Care Provider Unavailabl e Immunizations Immunization Administration Dates Next Due DTaP / Hep B / IPV 05/28/2006,04/09/2006, 006 Hep B, ped/adol 2005 Hib (PRP-T) 05/28/2006,04/09/2006,01/01/2006 Pneumococcal Conjugate 05/28/2006,04/09/2006,11/2005 Family History Relation Name Status Comments Father Alive Father: Alive a nd well Mother Alive Mother: Alive a nd well Other Family history of Migraines, Family history of Diabetes mellitus Social History Tobacco Use Types Packs/Day Years Used Date Smoking Tobacco: Never Assessed Comments Unknown Sex and Gender Information Value Date Recorded Sex Assigned at Not on file Legal Sex Female 4:16 PM EDT Gender Identity Not on file Sexual Orientation Not on file Plan of Treatment Health Maintenance Due Date Last Done Comments MMR Vaccines (1 of 1 - Standard series) 2006 IPV Vaccines (4 of 4 - 4-dose series) 2009 05/28/2006, 04/09/2006, 01/01/2006 Varicella Vaccines (1 of 2 - 13+ 2-dose series) 2018 HPV Vaccines (1 - 3-dose series) 2020 Men B Vaccine (1 of 2 - Standard) 2021 DTaP,Tdap,and Td Vaccines (4 - Tdap) 11/01/2023 05/28/2006, 04/09/2006, 01/01/2006 Influenza Vaccines (#1) 2025 COVID-19 Vaccine ( - season) 2025 HIB Vaccines Aged Out 05/28/2006, 03/31, 01/01/2006 No longer eligible based on patient's age to complete this topic Hepatitis B Vaccines Completed 05/28/2006, 04/09/2006, 01/01/2006, Additional history exists Pneumococcal Vaccine Aged Out 05/28/2006, 04/09/2006, 01/01/2006 No longer eligible based on patient's age to complete this topic Hepatitis A Vaccines Aged Out No long er eligible based on patient's age to complete this topic Meningococcal Vaccine Aged Out No brenda isiah eligible based on patient's age to complete this topic Care Teams Grinder Brake Lining Relationship Specialty Start Date End Date Syeda Myles MD PCP - General 04/10/17
--- OUTSIDE RECORDS SUMMARY | 2025-06-02 01:44 | XMS_ITS | Encounter Summary ---
Author Organization [facility] Address [address] [place] [address] Phone Care Team Providers Care Machine Programmer Name Role Phone Syeda Myles MD Primary Care Provider Unavailabl e Encounter Details Date Type Department Care Team (Late st Contact Info) Description 04/16/2017 Conversion Encounter [facility] - [address] [address] Social History Tobacco Use Types Packs/Day Years Used Date Smoking Tobacco: Never Assessed Comments Unknown Sex and Gender Information Value Date Recorded Sex Assigned at Not on file Legal Sex Female 4:16 PM EDT Gender Identity Not on file Sexual Orientation Not on file documented as of this encounter Plan of Treatment Not on file documented as of this encounter Visit Diagnoses Not on filedocumented in this encounter Care Teams Machine Programmer Relationship Specialty Start Date End Date Syeda Myles MD PCP - General 04/10/17 documented as of this encounter
[2025-06-02 02:17] LABS: UPreg QC Valid YES
[2025-06-02 03:11] VITALS: BP 110/58; PULSE 85; RESP 16; TEMP 36.9; O2SAT 99
[2025-06-02] MEDS: iohexoL 350 MG/ML 100 ML INFUS..BTL 85 ML IV (04:12)
[2025-06-02 06:16] VITALS: BP 93/52; PULSE 70; RESP 18; O2SAT 100
[2025-06-02 07:09] VITALS: BP 106/68
[2025-06-02 07:43] LABS: UPreg QC Valid YES
[2025-06-02 09:25] VITALS: BP 104/62; PULSE 72; RESP 18; TEMP 36.9; O2SAT 98
[2025-06-02 09:36] VITALS: BP 104/62; PULSE 72; RESP 18; TEMP 36.9; O2SAT 98
== END 2025-06-02 09:38 | disposition home or self-care (01) ==
PROVIDERS: Emergency Medicine; Physician Assistant; Emergency Provider Emergency Medicine
DX: R10.A2 Flank pain, left side (principal); M54.9 Dorsalgia, unspecified; R30.0 Dysuria; R31.0 Gross hematuria; R11.0 Nausea
CPT/HCPCS: 36415; 74177; 76856; 80053; 81003; 81025; 85025; 96361; 96365; 96375; 99285; J0131; J1885; Q9967

== ENCOUNTER → 2025-06-02 01:47 | Outpatient (BNV) | payer MEDICAID, SELFPAY | PROVIDERS: Emergency Provider Emergency Medicine; Visit Provider Specialist | DX: R10.32 Left lower quadrant pain (principal); R10.A2 Flank pain, left side | CPT/HCPCS: 74177 ==